=== PATIENT | male | born 1990 | race Hispanic/Latino ===

== ENCOUNTER 2018-05-27 23:28 | Emergency (ER) | payer BC ==
[2018-05-28] MEDS ORDERED: Lidocaine 4% (Laryng-O-Jet) Kit MM ONE (00:06)
[2018-05-28] MEDS ORDERED: Lidocaine 2% Jelly (Uro-Jet) ONE (00:06)
--- NOTE | 2018-05-28 01:08 | C.PDOC ---
History Of Present Illness 28 year old male presents to the ED for evaluation of FB sensation in his throat. Patient reports that today at dinner he ate goat meat after which he had FB sensation his left tonsil. Patient denies fever, chills, SOB, wheezing, difficulty swallowing, difficulty speaking, rash. Time Seen by Provider: 05/27/18 23:40 Chief Complaint (Nursing): ENT Problem History Per: Patient History/Exam Limitations: None Onset/Duration Of Symptoms: Hrs Current Symptoms Are (Timing): Still Present Quality (Mouth/Throat): Other (FB sensation) Severity: None Anticoagulant/Antiplatlet Use?: No Recent Aspirin Use: No Past Medical History Reviewed: Historical Data, Nursing Documentation, Vital Signs Vital Signs: Last Vital Signs Temp 97.9 F 05/27/18 23:32 Pulse 72 05/27/18 23:32 Resp 20 05/27/18 23:32 BP 100/67 05/27/18 23:32 Pulse Ox 97 05/27/18 23:32 - Medical History PMH: No Chronic Diseases Surgical History: No Surg Hx Family History: States: Unknown Family Hx - Social History Hx Alcohol Use: Yes Hx Substance Use: No - Immunization History Hx Tetanus Toxoid Vaccination: No Hx Influenza Vaccination: Yes Hx Pneumococcal Vaccination: No Review Of Systems Constitutional: Negative for: Fever, Chills ENT: Positive for: Throat Pain. Negative for: Nose Discharge Respiratory: Negative for: Shortness of Breath, Wheezing Gastrointestinal: Negative for: Nausea, Vomiting, Abdominal Pain Skin: Negative for: Rash Neurological: Negative for: Weakness, Numbness Physical Exam - Physical Exam Appears: Non-toxic, No Acute Distress Skin: Normal Color, Warm, Dry Head: Atraumatic, Normacephalic Eye(s): bilateral: Normal Inspection Oral Mucosa: Moist Throat: Normal, No Erythema, No Exudate, Other (small whitish spot on left tonsil, ? exudate, vs FB) Neck: Normal ROM, Supple Chest: Symmetrical Cardiovascular: Rhythm Regular Respiratory: Normal Breath Sounds, No Rales, No Rhonchi, No Wheezing Neurological/Psych: Oriented x3, Normal Speech, Normal Cognition Gait: Steady ED Course And Treatment O2 Sat by Pulse Oximetry: 97 (ON RA) Pulse Ox Interpretation: Normal - CT Scan/US CT neck Other Rad Studies (CT/US): Read By Radiologist, Radiology Report Reviewed CT/US Interpretation: PROCEDURE: CT SOFT TISSUE NECK WITH CONTRAST. REASON FOR EXAM: Foreign body in the left tonsil. TECHNIQUE: The patient was scanned in a multi-detector CT scanner. High resolution transaxial imaging was performed following intravenous administration of contrast material. Sagittal and coronal images were reconstructed. COMPARISON: None. FINDINGS: Mild hypertrophy of the palatine tonsils. Bilateral scattered benign chronic tonsillar calcifications. No CT evidence of a radiodense foreign body. Normal bilateral parotid glands. 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 Normal bilateral parapharyngeal spaces. Normal bilateral carotid spaces. Normal bilateral sublingual and submandibular glands. Normal visualized nasopharynx. Normal retropharyngeal space. Normal perivertebral space. The visualized tongue, tongue base and oropharynx are normal. The visualized cervical lymph nodes (levels I-) are within normal size limits, and maintain normal morphology. There is no demonstrated solid or cystic mass lesion. Normal epiglottis, bilateral vallecula and hypopharynx. The pre-epiglottic and paraglottic adipose spaces are normal. Normal visualized bilateral piriform sinuses, aryepiglottic folds, vocal cords, and arytenoid-cricoid articulations. Normal subglottic t rachea. Normal bilateral lobes of the thyroid gland. Normal visualized pulmonary apices. Normal visualized paranasal sinuses. Normal visualized cervical spine. IMPRESSION: Mild hypertrophy of the palatine tonsils. Bilateral scattered benign chronic tonsillar calcifications. No CT evidence of a radiodense foreign body. . Electronically signed on May 28, 2018 1:05:30 AM EST by: Abigail Gomez M.D., Certified by ABR, MSK, Neuroradiology Progress Note: Viscous lidocaine was given to the patient, attempted removal of FB from left tonsil however patient still had strong gag reflex, soft tuissue neck CT was ordered. CT showed no FB seen, results d/w patient and was advised to follow up with ENT for further evaluation. Ptin no distrss, no drooling and is tolerating PO well. 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 - Scribe Statement The provider has reviewed the documentation as recorded by the Scribe Negrito Blanchard All medical record entries made by the Scribe were at my direction and personally dictated by me. I have reviewed the chart and agree that the record a ccurately reflects my personal performance of the history, physical exam, medical decision making, and the department course for this patient. I have also personally directed, reviewed, and agree with the discharge instructions and disposition.
[2018-05-28 01:44] VITALS: BP 119/70; PULSE 71; RESP 16; TEMP 98.1
[2018-05-28 02:10] VITALS: O2SAT 97
--- NOTE | 2018-05-28 10:40 | CT ---
Date of service: 05/28/2018 PROCEDURE: CT NECK WITHOUT CONTRAST HISTORY: Foreign body to left tonsil, ? bone COMPARISON: Prior study available comparison. TECHNIQUE: CT of the neck without intravenous contrast. Additional 2D sagittal and coronal reformats generated. Radiation dose: Total exam DLP = 597.66 mGy-cm. This CT exam was performed using one or more of the following dose reduction techniques: Automated exposure control, adjustment of the mA and/or kV according to patient size, and/or use of iterative reconstruction technique. FINDINGS: NASOPHARYNX: Unremarkable. SUPRAHYOID NECK: Unremarkable, parapharyngeal space and retropharyngeal space.. There are few small calcifications/tonsilliths both palatine tonsils. [place] tonsils are prominent on however there is no evidence to suggest peritonsillar abscess. Irregular appearance of the vallecular may be secondary to encroaching lingual tonsils however residual and/or retained secretions may contribute. Free margin of the epiglottis unremarkable. INFRAHYOID NECK: Unremarkable larynx, hypopharynx, and supraglottic space. Aryepiglottic folds and pyriform sinuses are symmetric. Vocal cords intact and appear symmetric. MASS: There are no cervical masses or collections. GLANDS: Parotid and submandibular glands unremarkable. Normal size thyroid gland, however the there may be a small nodule posteromedial aspect right lobe of the thyroid gland. Follow-up thyroid ultrasound could be performed further evaluation.. LYMPH NODES: No significant lymphadenopathy. CERVICAL SPINE: No fracture or focal lesion. OTHER FINDINGS: None. IMPRESSION: The slightly prominent appearing palatine tonsils containing multiple small calcifications/tonsilliths.. No evidence of radiopaque foreign bodies. No evidence of peritonsillar abscess formation. Irregular soft tissue of within the vallecular may be secondary to encroaching lingual tonsils as well as some residual and or retained secretions.
== END 2018-05-28 01:46 | disposition home or self-care (01) ==
LOC: C.ER 23:28
DX: R09.89 Other specified symptoms and signs involving the circulatory and respiratory systems (principal); J35.8 Other chronic diseases of tonsils and adenoids